=== PATIENT | male | born 1990 | race Two or more races ===

== ENCOUNTER 2019-12-07 10:47 | Emergency (ER) | payer SELFPAY ==
[~2019-12-07] VITALS: Ht 165.1 cm; Wt 59.0 kg
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
--- NOTE | 2019-12-07 10:59 | NUR ---
PD OFFICERS AT BEDSIDE FOR INTERVIEW. OFFICER JEREMIAH HERNANDEZ #[id number], UNIT#[id number]
[2019-12-07] MEDS ORDERED: ONDANSETRON 4 MG TAB.RAPDIS SL ONE (11:30)
[2019-12-07] MEDS ORDERED: ACETAMINOPHEN ES 500 MG TABLET PO ONE (11:30)
[2019-12-07] MEDS ORDERED: ACETAMINOPHEN ES 500 MG TABLET ONE (11:45)
[2019-12-07] MEDS ORDERED: ONDANSETRON 4 MG TAB.RAPDIS ONE (11:45)
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
--- NOTE | 2019-12-07 13:02 | NUR ---
Patient discharged to home in stable condition. Written and verbal after care instructions given. Patient verbalizes understanding of instruction.
[2019-12-07 13:03] VITALS: BP 128/85
== END 2019-12-07 13:05 | disposition home or self-care (01) ==
LOC: ER 10:53
DX: S06.0X0A Concussion without loss of consciousness, initial encounter (principal); S00.83XA Contusion of other part of head, initial encounter; Y08.89XA Assault by other specified means, initial encounter; Y93.89 Activity, other specified; Y92.89 Other specified places as the place of occurrence of the external cause; Y99.8 Other external cause status
CPT/HCPCS: 70450; 72125; 99285; Q0162